=== PATIENT | female | born 1970 | race Caucasian/White ===

== ENCOUNTER 2018-07-31 14:06 | Observation (INO) ==
--- NOTE | 2018-07-31 14:59 | XR ---
EXAM DATE: 07/31/2018 2:55 PM EDT AGE/SEX: 48 years / Female INDICATIONS: . Chest pain. CLINICAL DATA: This is the patient's initial encounter. Patient reports that signs and symptoms have been present for 4 - 6 days and indicates a pain score of 5/10. MEDICAL/SURGICAL HISTORY: None. Fusion, cervical. COMPARISON: No prior exams available for comparison. FINDINGS: There is S-shaped thoracolumbar scoliosis. ACDF hardware overlies the cervical spine. The lungs are c lear. Heart size normal. CONCLUSION: Clear lungs. Electronically signed by: Jun Wu MD 07/31/2018 2:58 PM EDT
[2018-07-31 15:17] LABS: Baso # (Auto) 0.1 th/mm3 (0.0-0.2); Baso % (Auto) 0.4 % (0.0-2.0); Eos # (Auto) 0.1 th/mm3 (0.0-0.4); Eos % (Auto) 0.8 % (0.0-4.0); Hematocrit 40.1 % (35.0-46.0); Hemoglobin 13.9 gm/dL (11.6-15.3); Lymph # (Auto) 3.4 th/mm3 (1.0-4.8); Lymph % (Auto) 29.6 % (9.0-44.0); Mean Corpuscular HGB Conc 34.8 % (32.0-36.0); Mean Corpuscular Hemoglobin 31.4 pg (27.0-34.0); Mean Corpuscular Volume 90.2 fL (80.0-100.0); Mean Platelet Volume 8.8 fL (7.0-11.0); Mono # (Auto) 0.8 th/mm3 (0.0-0.9); Mono % (Auto) 7.3 % (0.0-8.0); Neut # (Auto) 7.2 th/mm3 (1.8-7.7); Neut % (Auto) 61.9 % (16.0-70.0); Platelet Count 270 th/mm3 (150-450); Red Blood Count 4.44 mil/mm3 (4.00-5.30); Red Cell Distribution Width 13.3 % (11.6-17.2); White Blood Count 11.6 th/mm3 (4.0-11.0)
[2018-07-31 15:31] LABS: Alanine Aminotransferase 38 U/L (10-53); Albumin 3.7 g/dL (3.4-5.0); Anion Gap 11 meq/L (5-15); Aspartate Aminotransferase 21 U/L (15-37); Blood Urea Nitrogen 15 mg/dL (7-18); Calcium 8.8 mg/dL (8.5-10.1); Chloride 105 meq/L (98-107); Glomerular Filtration Rate 50 mL/min (>89); Glucose,Random 97 mg/dL (74-106); Sodium 140 meq/L (136-145)
[2018-07-31 15:35] LABS: Alkaline Phosphatase 87 U/L (45-117); Total Protein 7.6 g/dL (6.4-8.2)
--- NOTE | 2018-07-31 19:04 | ED ---
HPI General Chief complaint: Chest Pain Stated complaint: Sob/Numbness Time Seen by Provider: 07/31/18 16:41 History of Present Illness HPI narrative: Patient is a 48-year-old female who has not had a checkup in a while for evaluation of left-sided chest pain, heaviness intermittent over the past week. States been getting worse this morning, associated with some shortness of breath. Recently had a long trip from [place]. No hormone replacement therapy. States feels heavy redness end of her chest and down her right arm. She has not had any personal history of heart disease but does have family history on her father's side though she is estranged from father does not know symptoms moderate, intermittent, left chest, radiation as above, associated signs symptoms in context as above. Related Data Home Medications Medication Instructions Recorded Confirmed No Known Home Medications 07/31/18 07/31/18 Allergies Allergy/AdvReac Type Severity Reaction Status Date / Time erythromycin base Allergy Vomiting Verified 07/31/18 14:27 Review of Systems ROS: all other systems reviewed are negative [facility] Medical History Medical History Scoliosis (Acute) Social History Social History Substance History: No History of Abuse Second Hand Smoke Exposure: No Smoking Status: Never smoker How Often Do You Have a Drink Containing Alcohol: Monthly or less Recent Travel in [facility] within the Last 8 Weeks: No Recent Out of Country Travel within the Last 8 Weeks: No Immunization History Tetanus Immunization: >5 Years Hx Influenza Vaccine This Season: No Exam Narrative Exam Narrative: GENERAL: Well-developed overweight female in no obvious distress. SKIN: Focused skin assessment warm/dry. HEAD: Atraumatic. Normocephalic. EYES: Pupils equal and round. No scleral icterus. No injection or drainage. ENT: No nasal bleeding or discharge. Mucous membranes pink and moist. NECK: Trachea midline. No JVD. CARDIOVASCULAR: Regular rate and rhythm. No murmur appreciated. No murmurs gallops or rubs. When she sits for she does become somewhat tachycardic. RESPIRATORY: No accessory muscle use. Clear to auscultation. Breath sounds equal bilaterally. GASTROINTESTINAL: Abdomen soft, non-tender, nondistended. Hepatic and splenic margins not palpable. MUSCULOSKELETAL: No obvious deformities. No clubbing. No cyanosis. No edema. NEUROLOGICAL: Awake and alert. No obvious cranial nerve deficits. Motor grossly within normal limits. Normal speech. PSYCHIATRIC: Appropriate mood and affect; insight and judgment normal. Course Initial Documented Vital Signs Temperature 98.3 F 07/31/18 14:10 Pulse Rate 97 H 07/31/18 14:10 Respiratory Rate 22 07/31/18 14:10 Blood Pressure 131/85 07/31/18 14:10 Pulse Oximetry 99 07/31/18 14:10 Last Documented Vital Signs Temperature 97.9 F 08/01/18 11:25 Pulse Rate 86 08/01/18 11:25 Respiratory Rate 18 08/01/18 11:25 Blood Pressure 117/62 08/01/18 11:25 Pulse Oximetry 97 08/01/18 11:25 Sign Out Sign Out Data: Patient Sign Out occurred on 07/31/18 at 19:17. Patient's care was discussed, and care was transferred from Gianluca Torres MD to Saadia Navarrete MD. Sign Out Comment: Follow-up CTA and disposition of the chest pain center Last updated by Gianluca Torres MD at 07/31/18 19:09 Post-Handoff Eval: The patient's case was checked out to me by Dr. Torres. Please see his complete history and physical. The patient's case was checked out to me at the conclusion of his shift. The patient's diagnostic evaluation is remarkable for a white count 11.6, hemoglobin 13.9, platelets 270 with a normal differential, , Chemistries remarkable for a creatinine of 1.16, GFR 50, troponin I of less than 0.02, repeat troponin I continues to be less than 0.02, a chest x-ray shows no acute cardiopulmonary disease, CTA to rule out PE is negative for PE, mild thoracic scoliosis is noted. The patient will be admitted to the chest pain center for rule out serial cardiac enzyme protocol followed by stress testing. The patient's results were discussed with the patient, including the plan of care. I explained that further testing and/ or monitoring is indicated based on the patient's history, examination, and/ or laboratory findings. Therefore, I recommended admission for additional evaluation. The patient expressed understanding and was agreeable with this plan. The patient was admitted to the hospital in stable condition and sent to a bed under the care of chest pain center. Medical Decision Making MDM Narrative Medical decision making narrative: Patient room to the emergency department, no sign symptoms of DVT, does have fair description for cardiac type chest pain. Think it is reasonable for her to consider chest pain center admission. She also has risk for PE and I think she needs a CT PE examination before going over to chest pain center. Patient was discussed with Dr. Navarrete, troponins and are negative 2, EKG negative. Medical Screen Exam Complete: Yes Emergency Medical Condition: Yes Differential Diagnosis Differential Diagnosis: ACS, DE, GERD, reflux, pneumonia, PE peer Lab Data Result diagrams: 07/31/18 14:35 07/31/18 14:35 Lab Results 07/31/18 07/31/18 07/31/18 Range/Units 14:35 14:35 17:09 WBC 11.6 H (4.0-11.0) th/mm3 RBC 4.44 (4.00-5.30) mil/mm3 Hgb 13.9 (11.6-15.3) gm/dL Hct 40.1 (35.0-46.0) % MCV 90.2 (80.0-100.0) fL MCH 31.4 (27.0-34.0) pg MCHC 34.8 (32.0-36.0) % RDW 13.3 (11.6-17.2) % Plt Count 270 (150-450) th/mm3 MPV 8.8 (7.0-11.0) fL Neut % (Auto) 61.9 (16.0-70.0) % Lymph % (Auto) 29.6 (9.0-44.0) % Haines % (Auto) 7.3 (0.0-8.0) % Eos % (Auto) 0.8 (0.0-4.0) % Baso % (Auto) 0.4 (0.0-2.0) % Neut # (Auto) 7.2 (1.8-7.7) th/mm3 Lymph # (Auto) 3.4 (1.0-4.8) th/mm3 [place]aines # (Auto) 0.8 (0.0-0.9) th/mm3 Eos # (Auto) 0.1 (0.0-0.4) th/mm3 Baso # (Auto) 0.1 (0.0-0.2) th/mm3 WBC Differential . Differential Comment Auto diff final Sodium 140 (136-145) meq/L Potassium 4.0 (3.5-5.1) meq/L Chloride 105 (98-107) meq/L Carbon Dioxide 24.0 (21.0-32.0) meq/L Anion Gap 11 (5-15) meq/L BUN 15 (7-18) mg/dL Creatinine 1.16 H (0.50-1.00) mg/dL Estimated GFR 50 L (>89) mL/min Random Glucose 97 (74-106) mg/dL Calcium 8.8 (8.5-10.1) mg/dL Total Bilirubin 0.3 (0.2-1.0) mg/dL AST 21 (15-37) U/L ALT 38 (10-53) U/L Alkaline Phosphatase 87 (45-117) U/L Total Creatine Kinase (26-192) U/L Troponin I Less than 0.02 L Less than 0.02 L (0.02-0.05) ng/mL Total Protein 7.6 (6.4-8.2) g/dL Albumin 3.7 (3.4-5.0) g/dL 07/31/18 Range/Units 22:05 WBC (4.0-11.0) th/mm3 RBC (4.00-5.30) mil/mm3 Hgb (11.6-15.3) gm/dL Hct (35.0-46.0) % MCV (80.0-100.0) fL MCH (27.0-34.0) pg MCHC (32.0-36.0) % RDW (11.6-17.2) % Plt Count (150-450) th/mm3 MPV (7.0-11.0) fL Neut % (Auto) (16.0-70.0) % Lymph % (Auto) (9.0-44.0) % Haines % (Auto) (0.0-8.0) % Eos % (Auto) (0.0-4.0) % Baso % (Auto) (0.0-2.0) % Neut # (Auto) (1.8-7.7) th/mm3 Lymph # (Auto) (1.0-4.8) th/mm3 Haines # (Auto) (0.0-0.9) th/mm3 Eos # (Auto) (0.0-0.4) th/mm3 Baso # (Auto) (0.0-0.2) th/mm3 WBC Differential Differential Comment Sodium (136-145) meq/L Potassium (3.5-5.1) meq/L Chloride (98-107) meq/L Carbon Dioxide (21.0-32.0) meq/L Anion Gap (5-15) meq/L BUN (7-18) mg/dL Creatinine (0.50-1.00) mg/dL Estimated GFR (>89) mL/min Random Glucose (74-106) mg/dL Calcium (8.5-10.1) mg/dL Total Bilirubin (0.2-1.0) mg/dL AST (15-37) U/L ALT (10-53) U/L Alkaline Phosphatase (45-117) U/L Total Creatine Kinase 122 (26-192) U/L Troponin I Less than 0.02 L (0.02-0.05) ng/mL Total Protein (6.4-8.2) g/dL Albumin (3.4-5.0) g/dL Imaging Data Radiologist's impression: Chest X-Ray 07/31/18 14:28 CONCLUSION: Clear lungs. Chest CTA 07/31/18 16:52 CONCLUSION: Unremarkable study except for mild thoracic scoliosis. Myocardial Perfusion Scan Nuc Med 08/01/18 07:48 CONCLUSION: 1. Negative examination. Discharge Plan Discharge Disposition Patient Disposition: 30 Still Patient Discharge Condition Condition: Stable Discharge Order Discharge Orders: Discharge Order (Routine); Ordered 08/01/18 Ordered By: Morris Mai Discharge Details Diagnosis: Chest pain, rule out acute myocardial infarction Physicians Team ED Provider: Saadia Navarrete Primary Care Provider: UNKNOWN, Attending Provider: Jim Paez Status ED Status: Left Department Discharge Information Discharge Date/Time: 07/31/18 21:40
--- NOTE | 2018-07-31 19:07 | CT ---
EXAM DATE: 07/31/2018 7:00 PM EDT AGE/SEX: 48 years / Female INDICATIONS: Shortness of breath; rule out pulmonary embolus. CLINICAL DATA: This is the patient's initial encounter. Patient reports that signs and symptoms have been present for 1 day and indicates a pain score of 2/10. MEDICAL/SURGICAL HISTORY: None. None. RADIATION DOSE: 10.30 CTDI (mGy) COMPARISON: No prior exams available for comparison. TECHNIQUE: Volumetric scanning was performed using a multi-row detector CT scanner during bolus infu elroy of 70 ml Omnipaque 350 (iohexol) nonionic water-soluble contrast as a single exam dose. The evette a was post processed with a variety of visualization algorithms including full volume maximum intensi ty projection and sliding thin slab reformation. Using automated exposure control and adjustment of the mA and/or kV according to patient size, radiation dose was kept as low as reasonably achievable t o obtain optimal diagnostic quality images. DICOM format image data is available electronically for review and comparison. FINDINGS: The lungs are clear without infiltrate, nodule, or mass. There is no pleural effusion. No appreciab le pathological adenopathy is seen within the mediastinum. There is no evidence of PE for technique. There is slight thoracic scoliosis convexity towards the right. CONCLUSION: Unremarkable study except for mild thoracic scoliosis. Electronically signed by: Imelda Blanton MD 07/31/2018 7:06 PM EDT
[2018-07-31] MEDS ORDERED: Acetaminophen 500 MG Tablet PO PRN (21:06)
[2018-07-31 22:58] LABS: Creatine Kinase 122 U/L (26-192)
[2018-08-01] MEDS: Sod Chloride 0.9% Inj 1,000 ML IV.CONT SCH ×2 (05:00→08:43)
--- NOTE | 2018-08-01 09:51 | P.HPCA ---
History of Present Illness Primary Care Physician: UNKNOWN Chief Complaint: Chest pain History of Present Illness: This is a 48-year-old female that presents to ED to be evaluated for 3 days of left-sided chest discomfort. First episode began 3 days ago and lasted a few seconds. Was an achiness in her left and right arm and radiated into the chest and into the abdomen. Then yesterday reoccurred after waking up and walking around her house. She was short of breath and lasted a few minutes. Nothing seem to bring on the discomfort. Nothing seemed to worsen or prove it. Has not had any like this before. Cannot recall prior cardiac evaluation. Denies chest pain at this time. Denies hypertension, hyperlipidemia, diabetes, and CAD. Lifetime non-smoker. Cannot recall family history of CAD. - Diagnosis (1) Chest pain Review of Systems General: Patient denies fevers, chills, and recent travel. HEENT: Patient denies headache, sore throat, difficulty swallowing. Cardiovascular: Has the chest discomfort as mentioned above. Denies sensation of heart beating rapidly or irregularly. No syncope. Denies diaphoresis. Respiratory: She was short of breath. Denies inspirational chest discomfort. Denies coughing wheezing or hemoptysis. GI: Patient denies nausea, vomiting, diarrhea, abdominal pain, bloody stools. Musculoskeletal: Patient denies joint pain or edema. Denies calf pain or edema. Neurovascular: Patient denies numbness, tingling, weakness in extremities. Denies headache. Endocrine: Denies polyuria and polydipsia. Hematologic: Denies easy bruising. Skin: Denies rash or itching. [facility] - History History Provided By: Patient - Medical History Medical History: Medical History (Last Updated 07/31/18 @ 16:38 by Abril Navarro) Scoliosis - Tobacco History Second Hand Smoke Exposure: No Tobacco Use In Past 30 Days: No Smoking Status: Never smoker - Alcohol History How Often Do You Have a Drink Containing Alcohol: Monthly or less - Substance Use History Substance History: No History of Abuse - Travel History Recent Travel in the [place] Within the Last 8 Weeks: No Recent Travel Out of the Country Within the Last 8 Weeks: No - Immunization History Tetanus Immunization: >5 Years Hx Influenza Vaccine This Season: No Medications and Allergies Active Medications: Active Medications Acetaminophen (Tylenol) 500 mg PO Q4H PRN PRN Reason: HEADACHE Sodium Chloride (Ns Inj) 1,000 mls @ 100 mls/hr IV.CONT .Q10H [facility] Last Infusion: 08/01/18 09:05 Dose: 0 mls/hr Sodium Chloride (Ns Flush) 2 ml IV.FLUSH BID [facility] Last Admin: 08/01/18 08:43 Dose: 2 ml Sodium Chloride (Ns Flush) 2 ml IV.FLUSH PRN PRN PRN Reason: FLUSH AFTER USING IV ACCESS Allergies Allergy/AdvReac Type Severity Reaction Status Date / Time erythromycin base Allergy Vomiting Verified 07/31/18 14:27 Home Medications Medication Instructions Recorded Confirmed Type No Known Home Medications 07/31/18 07/31/18 History Exam Vital signs: Vital Signs 07/31/18 14:10 07/31/18 16:38 07/31/18 17:28 Temperature 98.3 F Pulse Rate 97 H 90 80 Respiratory Rate 22 20 18 Blood Pressure 131/85 142/82 H 143/86 H Pulse Oximetry 99 100 100 07/31/18 21:50 08/01/18 00:00 08/01/18 04:00 Temperature 98.1 F 98.5 F 98.2 F Pulse Rate 84 89 82 Respiratory Rate 16 17 18 Blood Pressure 115/69 99/56 L 113/57 L Pulse Oximetry 99 99 97 08/01/18 08:00 Temperature 98.0 F Pulse Rate 79 Respiratory Rate 20 Blood Pressure 109/69 Pulse Oximetry 95 Intake & Output 07/31/18 08/01/18 08/01/18 18:59 06:59 18:59 Weight 81.647 kg Narrative: GENERAL: This is a well-nourished, well-developed patient, in no apparent distress. Patient speaks in clear complete sentences. Patient is pleasant. HEENT: Head is atraumatic and normocephalic. Neck is supple without lymphadenopathy and trachea is midline. No JVD or carotid bruits. CARDIOVASCULAR: Regular rate and rhythm without murmurs, gallops, or rubs. RESPIRATORY: Clear to auscultation. Breath sounds equal bilaterally. No wheezes , rales, or rhonchi. Chest wall is nontender. No use of accessory muscles. GASTROINTESTINAL: Abdomen is nontender, nondistended. Abdomen soft. No obvious pulsatile mass or bruit. No CVA tenderness. Strong femoral pulses bilaterally. Normal bowel sounds in all quadrants. MUSCULOSKELETAL: Patient is moving upper and lower extremities freely. No calf tenderness or edema, no Homans sign. Strong pulses in upper and lower extremities. NEUROLOGICAL: Patient is alert and oriented. Cranial nerves 2-12 are grossly intact. No focal deficits and speech is clear. SKIN: No rash and turgor is normal. Results 07/31/18 14:35 07/31/18 14:35 Cardiac Enzymes 07/31/18 07/31/18 07/31/18 Range/Units 14:35 17:09 22:05 AST 21 (15-37) U/L Troponin I Less than 0.02 L Less than 0.02 L Less than 0.02 L (0.02-0.05) ng/mL CBC 07/31/18 Range/Units 14:35 WBC 11.6 H (4.0-11.0) th/mm3 RBC 4.44 (4.00-5.30) mil/mm3 Hgb 13.9 (11.6-15.3) gm/dL Hct 40.1 (35.0-46.0) % Plt Count 270 (150-450) th/mm3 Neut # (Auto) 7.2 (1.8-7.7) th/mm3 Lymph # (Auto) 3.4 (1.0-4.8) th/mm3 [place] # (Auto) 0.8 (0.0-0.9) th/mm3 Eos # (Auto) 0.1 (0.0-0.4) th/mm3 Baso # (Auto) 0.1 (0.0-0.2) th/mm3 Comprehensive Metabolic Panel 07/31/18 Range/Units 14:35 Sodium 140 (136-145) meq/L Potassium 4.0 (3.5-5.1) meq/L Chloride 105 (98-107) meq/L Carbon Dioxide 24.0 (21.0-32.0) meq/L BUN 15 (7-18) mg/dL Creatinine 1.16 H (0.50-1.00) mg/dL Calcium 8.8 (8.5-10.1) mg/dL AST 21 (15-37) U/L ALT 38 (10-53) U/L Alkaline Phosphatase 87 (45-117) U/L Total Protein 7.6 (6.4-8.2) g/dL Albumin 3.7 (3.4-5.0) g/dL - Imaging and Cardiology Imaging: Impressions Chest X-Ray 07/31/18 14:28 CONCLUSION: Clear lungs. Chest CTA 07/31/18 16:52 CONCLUSION: Unremarkable study except for mild thoracic scoliosis. EKG interpretations - EKG EKG shows: sinus rhythm (EKGs are sinus rhythm without significant ST segment depressions or elevations.) Caprini VTE Risk Assessment Caprini VTE Risk Assessment: No/Low Risk (score <= 1) Caprini Risk Assessment Model: Point Value = 1 Point Value = 2 Point Value = 3 Point Value = 5 Age 41-60 Minor surgery BMI > 25 kg/m2 Swollen legs Varicose veins or History of unexplained or recurrent spontaneous Oral contraceptives or hormone replacement Sepsis (< 1 month) Serious lung disease, including pneumonia (< 1 month) Abnormal pulmonary function Acute myocardial infarction Congestive heart failure (< 1 month) History of inflammatory bowel disease Medical patient at bed rest Age 61-74 Arthroscopic surgery Major open surgery (> 45 min) Laparoscopic surgery (> 45 min) Malignancy Confined to bed (> 72 hours) Immobilizing plaster cast Central venous access Age >= 75 History of VTE Family history of VTE Factor V Leiden Prothrombin [id number] Lupus anticoagulant Anticardiolipin antibodies Elevated serum homocysteine Heparin-induced thrombocytopenia Other congenital or acquired thrombophilia Stroke (< 1 month) Elective arthroplasty Hip, pelvis, or leg fracture Acute spinal cord injury (< 1 month) Prophylaxis Regimen: Total Risk Factor Score Risk Level Prophylaxis Regimen 0-1 Low Early ambulation 2 Moderate Order ONE of the following: *Sequential Compression Device (SCD) *Heparin 5000 units SQ BID 3-4 Higher Order ONE of the following medications: *Heparin 5000 units SQ TID *Enoxaparin/Lovenox 40 mg SQ daily (WT < 150 kg, CrCl > 30 mL/min) *Enoxaparin/Lovenox 30 mg SQ daily (WT < 150 kg, CrCl > 10-29 mL/min) *Enoxaparin/Lovenox 30 mg SQ BID (WT < 150 kg, CrCl > 30 mL/min) AND/OR *Sequential Compression Device (SCD) 5 or more Highest Order ONE of the following medications: *Heparin 5000 units SQ TID (Preferred with Epidurals) *Enoxaparin/Lovenox 40 mg SQ daily (WT < 150 kg, CrCl > 30 mL/min) *Enoxaparin/Lovenox 30 mg SQ daily (WT < 150 kg, CrCl > 10-29 mL/min) *Enoxaparin/Lovenox 30 mg SQ BID (WT < 150 kg, CrCl > 30 mL/min) AND *Sequential Compression Device (SCD) Assessment and Plan - Assessment (1) Chest pain Code(s): R07.9 - Chest pain, unspecified Status: Acute - Plan * Chest pain: Patient has had serial cardiac enzymes and EKGs for ruling out purposes. She has been seen by Dr. Joey Ca of cardiology in the chest pain center. She will undergo a Lexiscan and be discharged home if her stress test is nonischemic with instructions to follow-up with local PCP. Return to ED for interval issues. H&P: Quality - VTE Deep Vein Thrombosis/Pulmonary Embolism Present on Admission: No
[2018-08-01] MEDS ORDERED: Regadenoson Inj 0.4 MG/5 ML Syringe IV.PUSH ONE (10:15)
--- NOTE | 2018-08-01 10:28 | ECG ---
Date Performed: 07/31/2018 Time Performed: 22:05:30 PTAGE: 48 years EKG: Sinus rhythm NORMAL ECG PREVIOUS TRACING : 07/31/2018 17.05 Since previous tracing, no significant change noted DOCTOR: Joey Ca Interpretating Date/Time 08/01/2018 10:27:34
--- NOTE | 2018-08-01 10:29 | ECG ---
Date Performed: 07/31/2018 Time Performed: 17:05:28 PTAGE: 48 years EKG: Sinus rhythm WITH SHORT NM INTERVAL BORDERLINE ECG PREVIOUS TRACING : 07/31/2018 14.40 Since previous tracing, no significant change noted DOCTOR: Joey Ca Interpretating Date/Time 08/01/2018 10:28:56
--- NOTE | 2018-08-01 10:30 | ECG ---
Date Performed: 07/31/2018 Time Performed: 14:40:56 PTAGE: 48 years EKG: Sinus rhythm NORMAL ECG NO PREVIOUS TRACING DOCTOR: Joey Ca Interpretating Date/Time 08/01/2018 10:29:40
--- NOTE | 2018-08-01 11:20 | NM ---
EXAM DATE: 08/01/2018 11:14 AM EDT AGE/SEX: 48 years / Female INDICATIONS:Angina. . Chest pain. CLINICAL DATA: This is the patient's initial encounter. Patient reports that signs and symptoms have been present for 1 day and indicates a pain score of 0/10. MEDICAL/SURGICAL HISTORY: None. None. COMPARISON: No prior exams available for comparison. DOSE: 8.1 mCi Tc 99m Myoview at rest 27.3 mCi [id number] at stress 0.4 mg Lexiscan STRESS SYMPTOMS: Chest pain and abdomen pain. EJECTION FRACTION: 70 % TECHNIQUE: The patient underwent pharmacologic stress with infusion of prescribed dose. Continuous ECG tracing was monitored during stress. Gated SPECT imaging was performed after stress and conventi onal SPECT imaging was performed at rest. The examination was performed on a SPECT/CT scanner, both attenuation and non-corrected datasets were reviewed. FINDINGS: Distribution: The maximum perfused segment at stress is in the inferolateral wall. Perfusion Study: The pattern of perfusion at stress is within normal limits. Gated Study: There are intact wall motion and wall thickening without hypokinetic or dyskinetic segm ents. The ejection fraction is calculated at 70%. RISK CATEGORY: Low (<1% Annual Motality Rate) CONCLUSION: 1. Negative examination. Electronically signed by: Domenic Mejia MD 08/01/2018 11:19 AM EDT
[2018-08-01 11:28] VITALS: BP 117/62; PULSE 86; RESP 18; TEMP 97.9; O2SAT 97
--- NOTE | 2018-08-01 14:54 | TR ---
Date Performed: 08/01/2018 Time Performed: 10:16:57 DOCTOR: Joey Ca DRUG LIST: CLINICAL HISTORY: REASON FOR TEST: REASON FOR ENDING: OBSERVATION: CONCLUSION: COMMENTS: Lexiscan stress test was performed under standard four minute protocol. Radionuclide was injected one minute prior to ending the test. No electrocardiographic abormalities were present t o suggest ischemia. Nuclear imaging and interpretation are pending.
== END 2018-08-01 12:27 | disposition home or self-care (01) ==
LOC: NEDA 14:06 → NEPE 14:06 → NEDA 21:40 → NEPHCDU 21:43
PROVIDERS: ADMIT Internal Medicine Interventional Cardiology; ATTEND Internal Medicine Interventional Cardiology
DX: E66.3 Overweight; Z68.29 Body mass index [BMI] 29.0-29.9, adult; R07.9 Chest pain, unspecified; R94.31 Abnormal electrocardiogram [ECG] [EKG]